=== PATIENT | female | born 2000 | race Caucasian/White ===

== ENCOUNTER 2023-06-03 06:54 | Emergency (ER) | payer OTHER ==
[~2023-06-03] VITALS: Ht 162.6 cm; Wt 81.0 kg
[2023-06-03] MEDS ORDERED: BUSP15TA47 PO (07:10)
[2023-06-03] MEDS ORDERED: TRAZ-252 PO (07:10)
[2023-06-03] MEDS ORDERED: ZOLO100T PO (07:10)
[2023-06-03 07:39] LABS: BASO # 0.1 10^3/uL (0.0-0.2); BASO % 0.8 % (0.0-1.0); EOS % 0.6 % (0.0-3.0); HEMOGLOBIN 13.1 g/dl (12.0-15.5); LYMPH # 2.1 10^3/uL (1.5-5.0); LYMPH % 32.2 % (24.0-44.0); MEAN CORPUSCULAR HEMOGLOBIN 29.6 pg (27.0-33.0); MEAN CORPUSCULAR HGB CONC 32.8 g/dl (32.0-36.5); MEAN CORPUSCULAR VOLUME 90.5 fl (80.0-96.0); MONO # 0.4 10^3/uL (0.0-0.8); MONO % 6.8 % (2.0-8.0); NEUTROPHILS # 3.9 10^3/uL (1.5-8.5); NEUTROPHILS % 59.3 % (36.0-66.0); PLATELET COUNT, AUTOMATED 331 10^3/uL (150-450); RED BLOOD COUNT 4.42 10^6/uL (4.00-5.40); WHITE BLOOD COUNT 6.5 10^3/uL (4.0-10.0)
[2023-06-03 07:58] LABS: LIPASE 27 U/L (12-53)
[2023-06-03 08:00] LABS: ALBUMIN 3.9 G/DL (3.2-5.2); ALKALINE PHOSPHATASE 52 U/L (46-116); ALT/SGPT 18 U/L (7.0-40); AST/SGOT 21 U/L (<34); BILIRUBIN,DIRECT 0.2 MG/DL (<0.4); BILIRUBIN,TOTAL 0.5 MG/DL (0.3-1.2); BLOOD UREA NITROGEN 20 MG/DL (9-23); CALCIUM LEVEL 9.3 MG/DL (8.5-10.1); CARBON DIOXIDE LEVEL 24 MMOL/L (20-31); CHLORIDE LEVEL 110 MMOL/L (98-107); CREATININE FOR GFR 0.98 MG/DL (0.55-1.30); GLOMERULAR FILTRATION RATE > 60.0 (>60); GLUCOSE, FASTING 90 MG/DL (60-100); POTASSIUM SERUM 4.4 MMOL/L (3.5-5.1); SODIUM LEVEL 138 MMOL/L (136-145); TOTAL PROTEIN 6.8 G/DL (5.7-8.2)
[2023-06-03 08:38] LABS: C REACTIVE PROTEIN QUANTITATIV < 0.40 MG/DL (<1.0)
[2023-06-03 08:40] LABS: HCG, SERUM QUALITATIVE NEGATIVE (NEGATIVE)
[2023-06-03] MEDS ORDERED: MED REC IN PROGRESS XX SCH (11:35)
[2023-06-03 11:49] VITALS: BP 123/64; TEMP 98.2; O2SAT 97
== END 2023-06-03 11:53 | disposition home or self-care (01) ==
LOC: M ED 06:54
DX: N83.202 Unspecified ovarian cyst, left side (principal); F41.9 Anxiety disorder, unspecified; F32.A Depression, unspecified; Z91.040 Latex allergy status

== ENCOUNTER → 2023-09-08 | Outpatient (CLI) | payer OTHER ==
[~2023-09-08] MED LIST: BUSP15TA47 PO; TRAZ-252 PO; ZOLO100T PO
== END ==
LOC: M WHC 14:32
PROVIDERS: ATTEND Nurse Practitioner Family
DX: N83.202 Unspecified ovarian cyst, left side (principal); R10.2 Pelvic and perineal pain

== ENCOUNTER 2023-10-17 05:11 | Emergency (ER) | payer OTHER ==
[~2023-10-17] VITALS: Ht 162.6 cm; Wt 91.7 kg
[2023-10-17] MEDS ORDERED: IBUP200T46 PO (07:42)
[2023-10-17] MEDS ORDERED: ACET-897 PO (07:42)
[2023-10-17] MEDS ORDERED: PERCOCET PO (08:02)
[2023-10-17] MEDS ORDERED: IBUP80TA PO (08:03)
[2023-10-17] MEDS: PERCOCET 5MG/325MG TAB PO ONE (08:28)
[2023-10-17 08:37] VITALS: BP 130/78; TEMP 97.9; O2SAT 98
== END 2023-10-17 08:39 | disposition home or self-care (01) ==
LOC: M ED 05:11
DX: K08.89 Other specified disorders of teeth and supporting structures (principal); F32.A Depression, unspecified; F41.9 Anxiety disorder, unspecified; Z91.040 Latex allergy status

== ENCOUNTER → 2024-03-18 | Outpatient (CLI) | payer OTHER ==
[~2024-03-18] MED LIST changes: +ACET-897 PO; +IBUP200T46 PO; +IBUP80TA PO; +PERCOCET PO
== END ==
LOC: M RAD 08:28
PROVIDERS: ATTEND Family Medicine
DX: R10.9 Unspecified abdominal pain (principal)

== ENCOUNTER → 2024-03-23 | Outpatient (CLI) | payer OTHER | LOC: M PLAIMG 13:50 | PROVIDERS: ATTEND Family Medicine | DX: R10.9 Unspecified abdominal pain (principal); K56.41 Fecal impaction ==